=== PATIENT | female | born 1990 | race African-American/Black ===

== ENCOUNTER 2017-03-08 11:41 | Emergency (ER) | payer MEDICAID ==
[~2017-03-08] VITALS: Ht 160 cm; Wt 54.0 kg
[2017-03-08 16:18] VITALS: BP 122/70
== END 2017-03-08 16:20 | disposition home or self-care (01) ==
LOC: ER 11:41
DX: R05 Cough (principal); J45.909 Unspecified asthma, uncomplicated; L30.9 Dermatitis, unspecified; F12.10 Cannabis abuse, uncomplicated
CPT/HCPCS: 71045; 81025; 99283

== ENCOUNTER 2018-09-13 15:01 | Emergency (ER) | payer MEDICAID, OTHER ==
[~2018-09-13] VITALS: Ht 160 cm; Wt 68.0 kg
[2018-09-13] MEDS ORDERED: AZITHROMYCIN 500 MG TABLET PO ONE (15:30)
[2018-09-13] MEDS ORDERED: CEFTRIAXONE SODIUM 250 MG/VIAL IM ONE (15:30)
[2018-09-13 16:02] LABS: CLARITY URINE CLOUDY (CLEAR); COLOR URINE YELLOW (YELLOW); KETONES URINE TRACE (NEGATIVE); LEUKOCYTE ESTERASE URINE NEGATIVE (NEGATIVE); NITRITE URINE NEGATIVE (NEGATIVE); OCCULT BLOOD URINE NEGATIVE (NEGATIVE); PH URINE 5.5 (4.5-8.0); PROTEIN URINE NEGATIVE (NEGATIVE); SPECIFIC GRAVITY URINE 1.025 (1.005-1.030); UROBILINOGEN URINE 0.2 E.U./dL (0.2-1.0)
[2018-09-13] MEDS ORDERED: LIDOCAINE HCL/PF 1% 10 MG/ML 5ML VIAL IJ ONE (16:45)
[2018-09-13 17:30] VITALS: BP 114/73
== END 2018-09-13 18:00 | disposition home or self-care (01) ==
LOC: ER 15:01
DX: N76.0 Acute vaginitis (principal); A64 Unspecified sexually transmitted disease; F12.10 Cannabis abuse, uncomplicated
CPT/HCPCS: 81003; 81025; 87210; 87491; 87591; 96372; 99283; J0696; J3490

== ENCOUNTER 2021-01-09 17:33 | Emergency (ER) | payer MEDICAID, OTHER ==
[~2021-01-09] VITALS: Ht 160 cm; Wt 67.0 kg
[2021-01-09 17:35] VITALS: BP 114/70
[2021-01-09 19:26] LABS: CLARITY URINE CLOUDY (CLEAR); COLOR URINE YELLOW (YELLOW); KETONES URINE 3+ (NEGATIVE); LEUKOCYTE ESTERASE URINE 1+ (NEGATIVE); NITRITE URINE NEGATIVE (NEGATIVE); OCCULT BLOOD URINE NEGATIVE (NEGATIVE); PROTEIN URINE TRACE (NEGATIVE)
[2021-01-09] MEDS ORDERED: METR70GE17 VG (19:54)
== END 2021-01-09 20:11 | disposition home or self-care (01) ==
LOC: ER 17:33
DX: N76.0 Acute vaginitis (principal); F12.10 Cannabis abuse, uncomplicated
CPT/HCPCS: 81003; 81025; 87210; 87491; 87591; 99283

== ENCOUNTER 2021-01-24 17:23 | Emergency (ER) | payer MEDICAID, OTHER ==
[~2021-01-24] VITALS: Ht 160 cm; Wt 66.0 kg
[~2021-01-24 17:23] MED LIST: METR70GE17 VG
[2021-01-24] MEDS ORDERED: DOXY-326 MT (17:49)
[2021-01-24] MEDS ORDERED: METR500T MT (17:49)
[2021-01-24] MEDS ORDERED: DOXYCYCLINE HYCLATE 100MG CAPSULE PO ONE (18:00)
[2021-01-24] MEDS ORDERED: CEFTRIAXONE SODIUM 500 MG/VIAL IM ONE (18:00)
[2021-01-24] MEDS ORDERED: LIDOCAINE HCL/PF 1% 10 MG/ML 5ML VIAL INFIL ONE (18:00)
[2021-01-24] MEDS ORDERED: LIDOCAINE HCL 1% 20ML VIAL (Pyxis) INJ INFIL ONE (18:15)
[2021-01-24 18:22] VITALS: BP 120/66
== END 2021-01-24 18:23 | disposition home or self-care (01) ==
LOC: ER 17:32
DX: A56.02 Chlamydial vulvovaginitis (principal); F12.10 Cannabis abuse, uncomplicated
CPT/HCPCS: 96372; 99283; J0696; J3490